=== PATIENT | male | born 2000 | race African-American/Black ===

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

== ENCOUNTER 2021-04-14 21:29 | Emergency (ER) | payer MEDICAID, SELFPAY ==
[2021-04-14 21:30] VITALS: BP 138/68; PULSE 76; RESP 15; TEMP 36.3; O2SAT 98; BMI 21.3
--- NOTE | 2021-04-14 22:00 | RAD_ITS ---
STUDY: X-RAY - LEFT SHOULDER REASON FOR EXAM: Male, 20 years old. PAIN TECHNIQUE: 4 view(s) of the shoulder. COMPARISON: None. FINDINGS: Normal glenohumeral articulation. Normal acromioclavicular joint. Downsloping acromion. Normal humeral head and visualized proximal humerus. The soft tissue structures are unremarkable. Normal visualized pulmonary apex. RAD/Shoulder min 2 Views IMPRESSION: Downsloping acromion which can be a cause of subacromial impingement. Otherwise normal shoulder. Electronically Signed: Carl Marrero MD at 22:22 EDT Tel , Service support ,
--- NOTE | 2021-04-14 22:39 | EDS_ITS ---
HPI History of Present Illness Chief Complaint: Upper Extremity Injury Detail of Chief Complaint: Left shoulder pain Informant: patient Onset/Context/Timing Onset: Month(s) Context: Gradual Onset Timing: Waxes and wanes Quality of Pain: Aching and Throbbing Current Severity: Mild Maximum Severity: Moderate Narrative Narrative: Patient present secondary left shoulder pain. He states is been having trouble for about a year. Usually when he plays basketball it will loo sen up and feel better but today has had increased pain after playing basketball. He states he has had prior x-rays and MRIs with no definitive cause for his pain. He is right-hand dominant. He denies a specific injury to his shoulder. PFSH PFSH no medical history Home Medications cyclobenzaprine 10 mg PO BID PRN #10 tab 04/14/21 [Rx Last Taken Unknown] naproxen [Naprosyn] 500 mg PO BID PRN #20 tab 04/14/21 [Rx Last Taken Unknown] Allergy/AdvReac Type Severity Reaction Status Date / Time No Known Allergies Allergy Verified 04/14/21 21:29 Social History Smoking Status: Never smoker ROS ROS ED Constitutional Constitutional ED: Denies chills or fever(s) Eyes Eyes: Denies change in vision ENT ENT ED: Denies sore throat Cardiovascular Cardiovascular: Denies chest pain Respiratory/Chest Respiratory/Chest: Denies cough or dyspnea Gastrointestinal Gastrointestinal: Denies abdominal pain, diarrhea, nausea or vomiting Genitourinary Genitourinary ED: Denies dysuria Musculoskeletal Musculoskeletal: Reports other Details: Left shoulder pain ; Denies back pain Integumentary Denies rash Neurologic Neurologic: Denies headache(s) or weakness Psychiatric Psychiatric: Denies anxiety or depression Endocrine Endocrinology: Denies polydipsia or polyuria Allergic/Immunologic Allergic/Immunologic ED: Denies urticaria EXAM Physical Exam Const Vital Signs: 04/14/21 21:30 Temperature 97.3 F L Temperature Source Temporal Pulse Rate 76 Respiratory Rate 15 Blood Pressure 138/68 H Blood Pressure Mean 91 Pulse Ox 98 Oxygen Delivery Method Room Air Positive well nourished and well developed General Appearance ED: well developed HEENT Reports normocephalic and head/scalp atraumatic Eyes PERRL and EOMs intact bilaterally Neck supple Chest Wall inspection of chest normal and palpation of chest normal Resp normal respiratory effort and clear to auscultation bilaterally Cardio regular rate and regular rhythm GI normal to inspection, nondistended, normoactive bowel sounds Palpation: soft Extremity normal to inspection Extremity Narrative: Tenderness palpation over the subscapularis muscle as well as over the humeral head. Full range of motion. No overlying skin change. Neuro oriented x3 and no sensory deficits noted Sensorium / Orientation: alert Motor Exam: strength 5/5 throughout Psych mental status grossly normal Skin no rashes or lesions noted MDM MDM MDM Narrative Medical decision making narrative: X-rays are obtained per nursing protocol. Radiography Diagnostic Testing: Radiology Impression Shoulder X-Ray 04/14/21 22:00 IMPRESSION: Downsloping acromion which can be a cause of subacromial impingement. Otherwise normal shoulder. Electronically Signed: Carl Marrero MD at 22:22 EDT Tel , Service support , Treatment and Re-Evaluation Comments:: Per my interpretation no obvious bony abnormalities on the x-ray. Radiologist interpretation is reviewed. He does have downsloping acromion which may cause subacromial impingement. This was reviewed with him. He will be treated with anti-inflammatories as well as a few muscle relaxers. He will be referred to orthopedics for follow-up. Discharge Plan Triage Chief Complaint: Upper Extremity Injury ED Provider: Kavita Tse Dx/Rx/DC Orders Clinical Impression: Sprain of left shoulder Instructions: ED Shoulder Impingement Syndrome Prescriptions: New naproxen [Naprosyn] 500 mg tablet 500 mg PO BID PRN (Reason: pain) Qty: 20 RF: 0 cyclobenzaprine 10 mg tablet 10 mg PO BID PRN (Reason: muscle spasm) Qty: 10 RF: 0 Primary Care Provider: Jackson Moreira Referrals: Jackson Moreira MD [Primary Care Provider] - Luis Alfredo Wilcox DO [STAFF PHYSICIAN] - 1 Week Disposition Disposition: Home, self care
[2021-04-14] MEDS: Pantoprazole Sodium 20 MG Tablet PO (23:02)
[2021-04-14] MEDS: predniSONE 20 MG Tablet 40 MG PO (23:02)
[2021-04-14] MEDS: Naproxen 500 MG Tablet PO (23:02)
== END 2021-04-14 23:04 | disposition home or self-care (01) ==
LOC: ED 22:56
PROVIDERS: Emergency Provider Emergency Medicine; PCP Family Medicine
DX: S43.402A Unspecified sprain of left shoulder joint, initial encounter (principal); Y93.64 Activity, baseball
CPT/HCPCS: 73030; 99283

== ENCOUNTER 2021-05-04 14:41 | Emergency (ER) | payer MEDICAID, SELFPAY ==
[2021-05-04 14:42] VITALS: BP 131/83; PULSE 62; RESP 14; TEMP 36.7; O2SAT 98; BMI 22.2
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
[2021-05-04] MEDS: Diphth,Pertuss(Acell),Tet Vac 0.5 ML Vial IM (15:25)
[2021-05-04] MEDS: Lidocaine 1% (20 ml mdv) 20 ML Vial INFILT (15:27)
[2021-05-04] MEDS: Amox/Clavulanate 875 MG Tablet PO (16:25)
[2021-05-04 16:28] VITALS: RESP 16
== END 2021-05-04 16:29 | disposition home or self-care (01) ==
PROVIDERS: Emergency Provider Emergency Medicine; PCP Family Medicine
DX: S61.214A Laceration without foreign body of right ring finger without damage to nail, initial encounter (principal); S56.425A Laceration of extensor muscle, fascia and tendon of right ring finger at forearm level, initial encounter; Y04.0XXA Assault by unarmed brawl or fight, initial encounter; Y93.89 Activity, other specified; Y92.89 Other specified places as the place of occurrence of the external cause; Y99.8 Other external cause status
CPT/HCPCS: 12001; 73140; 90471; 90715; 99284

== ENCOUNTER 2021-05-09 13:50 | Day surgery (SDC) | payer MEDICAID, SELFPAY ==
[2021-05-09 09:34] VITALS: BMI 22.2
[2021-05-09 14:27] VITALS: BP 119/77; PULSE 50; RESP 16; TEMP 36.6; O2SAT 100; BMI 17.2
[2021-05-09] MEDS: Lactated Ringers 1,000 ML 100 ML IV ×2 (14:50→16:25)
[2021-05-09] MEDS: Mupirocin Ointment 22gm Tube 1 APPLIC (15:55)
[2021-05-09] MEDS: Lidocaine 1% /Epi 1:100 (50ml) 50 ML VIAL (15:55)
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
--- NOTE | 2021-05-09 16:11 | PCM.DC ---
Discharge Instructions Diet Discharge Diet: No restrictions Activity Discharge Activity: May Shower (wear plastic bag over right hand when showering.) and - (no lifting with right hand. keep right hand elevated. ) May shower in (days): 1 (wear plastic bag over right hand when showering.) May resume sexual activity in: 10-14 days Weight Bearing Status: Weight bearing as tolerated Lifting Restrictions: no lifting with right hand. Keep extremity elevated above heart level: Right Arm Dressing / Incision Call your doctor if your incision/area has: Continuous Slow Oozing, Sudden Increased Bleeding, Increased Pain/ Swelling, Increased Redness, Foul Smelling Discharge and Swelling at the incision site Call your doctor if you observe: Fever of 101 or Higher, Coldness, Increased Pain, Shortness of breath, Chest pain, Calf discomfort and Uncontrolled pain Change Dressing in: 1 week (will change operative dressing in office or at OT with replacement silastic splint.) Cleanse incision/area with: - (wear plastic bag over right hand when showering.) Follow Up Care Please Follow Up With: Mike Amaya MD When: one week. call [phone] for appt. will set up appt with OT for silastic splint and at the appropriate time, range of motion exercises, strengthening, and edema management. Test Results: Test results from this visit will be discussed in further detail at your follow-up appointment, if applicable. Discharge Plan Admission Primary Reason for Your Visit: outpatient surgery Attending Provider: Mike Amaya Primary Care Provider: Jackson Moreira Discharge Orders/Prescriptions Prescriptions: New amoxicillin-pot clavulanate [Augmentin] 875-125 mg tablet 1 tab PO BID Qty: 30 RF: 0 oxycodone-acetaminophen [Percocet] 5-325 mg tablet 1 tab PO Q4H PRN (Reason: pain (scale score 7-10)) 7 Days Qty: 40 RF: 0 Referrals / Follow Up: Jackson Moreira MD [Primary Care Provider] - Disposition Disposition (needs filled in before D/C Order can be placed): Home, Self Care
[2021-05-09 16:19] VITALS: BP 119/77; BP 135/85; PULSE 68; RESP 16; TEMP 35.9; O2SAT 98
[2021-05-09 16:30] VITALS: BP 119/77; BP 127/89; PULSE 51; RESP 16; O2SAT 98
[2021-05-09 16:45] VITALS: BP 119/77; BP 142/87; PULSE 47; RESP 16; O2SAT 100
[2021-05-09 16:49] VITALS: BP 119/77; BP 142/94; PULSE 44; RESP 16; TEMP 35.9; O2SAT 100
[2021-05-09] MEDS: Acetaminophen 325 MG Tablet PO (17:04)
[2021-05-09] MEDS: oxyCODONE 5 MG Tablet PO (17:04)
[2021-05-09 17:13] VITALS: BP 119/77; BP 147/90; PULSE 42; RESP 16; O2SAT 100
== END 2021-05-09 17:30 | disposition home or self-care (01) ==
LOC: SDC 13:51 → AC 13:53
PROVIDERS: PCP Family Medicine; Referring Provider Surgery; Visit Provider Surgery
PROC: (CPT 26418; principal; 2021-05-09 14:05)
DX: S66.324A Laceration of extensor muscle, fascia and tendon of right ring finger at wrist and hand level, initial encounter (principal); S61.254A Open bite of right ring finger without damage to nail, initial encounter; Y04.2XXD Assault by strike against or bumped into by another person, subsequent encounter
CPT/HCPCS: 01810; 26418; 87426; J7120; J0295; J2405

== ENCOUNTER 2021-05-23 11:00 | Outpatient (RCR) | payer MEDICAID, SELFPAY ==
[2021-05-15 14:14] VITALS: BMI 17.2
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
--- NOTE | 2021-11-04 09:46 | HP.OT.NRP ---
LUIS OLIVER ALVARES was seen in my office for initial evaluation on 05/16/21. The following Plan of Care was established for this patient: Initial Frequency: 1x/Week Initial Duration: 4 Weeks Plan: cont POC Anticipated Interventions: Early Active Motion, A/AAROM/PROM, Scar Care, Wound Care, Modalities, Orthoses This patient was last seen in our office 05/23/21. Pertinent comments regarding their Occupational therapy will appear below: pt seen for 2 visits- due to time lapse in services pt. D/C At this point I will be discontinuing this patient from occupational therapy. I would be happy to see this patient again in the future if found appropriate by the physician. Thank you! Marleny Lim, OTR/L, CHT
== END 2021-05-23 19:00 | disposition home or self-care (01) ==
LOC: OT 11:00
PROVIDERS: PCP Family Medicine; Referring Provider Surgery; Visit Provider Surgery
DX: S66.324D Laceration of extensor muscle, fascia and tendon of right ring finger at wrist and hand level, subsequent encounter (principal); S61.254D Open bite of right ring finger without damage to nail, subsequent encounter; Y04.0XXD Assault by unarmed brawl or fight, subsequent encounter
CPT/HCPCS: 97140; 97166; 97530

== ENCOUNTER 2021-05-24 12:00 | Emergency (ER) | payer MEDICAID, SELFPAY ==
[2021-05-22 14:44] VITALS: BMI 17.2
[2021-05-24 12:01] VITALS: BP 122/90; PULSE 61; RESP 15; TEMP 36.8; BMI 21.9
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
[2021-05-24] MEDS: Lidocaine 1% (20 ml mdv) 20 ML Vial INFILT (12:53)
[2021-05-24] MEDS: Doxycycline 100 MG CAPSULE PO (12:53)
== END 2021-05-24 12:56 | disposition home or self-care (01) ==
LOC: ED 12:48
PROVIDERS: Emergency Provider Emergency Medicine; PCP Family Medicine
DX: T81.31XA Disruption of external operation (surgical) wound, not elsewhere classified, initial encounter (principal)
CPT/HCPCS: 12020; 99284

== ENCOUNTER 2022-05-05 17:30 | Outpatient (RCR) | payer MEDICAID, SELFPAY ==
--- NOTE | 2022-04-16 13:56 | HP.PTEVAL ---
Patient's Visit Information LUIS ALVARES is a 21 year old M referred to Physical Therapy by Richa Barclay with a diagnosis of Strain of muscle in LB. Date of Evaluation: 04/16/22 Physical Therapist: Yayo Ryder, ANNE, OCS, CSCS - Visit Plan Frequency: 1-2x /Week Duration: 2-4 Weeks Plan: 2x/week as needed for modalities including STM to L LB, US and ES if needed. If doing better than can progress to core strength and progression of function. - Subjective Back spasms in LB and cannot workout. LBP L sided pain, it started two days ago in the middle of a basketball workout after a cutting move. [place] it moreso at home. My posture is poor playing the game. Not a chronic problem. Sleeping OK. Pain 0-6/10 sharp pain. Not playing basketball since then. Not improving. Activities at home are pretty normal. Not employed. - Objective Walks normal into PT without hesitation. Trasnfers I, some hesitation and discomfort to supine with unsupported pelvis but transient.. Posture in sitting is poor and sacral sitting hunched over but not painful. L/S extension min limited and L pain, SB comfortable and full R and some pain end range L SB. flexion is full and without pain. reflexes 2/3 patella and achilles. Sensation LE WNL to gross light touch. HS mod tight at -35 90/90 test, - SLR, - slump test. strength LE 5/5 without myotomal problems. Core abs 4?5 with some minor discomfort and extension 4+ without pain. - Balance/Special Test Scores Oswestry Low Back Score: 8 - Goals Goal 1:: patient painfree with transfers Goal Time Frame: 2-4 Weeks Goal 2:: Pt feel back to 95% normal activity and no pain Goal Time Frame: 2-4 Weeks Goal 3:: Oswestry score perfect Goal Time Frame: 2-4 Weeks Goal 4:: I appropriate management of condition. Goal Time Frame: 2-4 Weeks - Rehabilitation Potential Physical Therapy Diagnosis: lumbar strain Rehabilitation Potential: Good - Anticipated Interventions Patient/Client Instruction: Educate patient on: Condition, Plan of Care For the Purpose of:: To decrease pain, To improve muscle performance and motor function, To increase tolerance to activity/condition/position Therapeutic Exercise to Include: Strength training, Flexibilty training, Dynamic Lumbar Stabilization For the Purpose of:: To decrease pain, To improve muscle performance and motor function, To increase tolerance to activity/condition/position Manual Therapy Techniques to Include: Soft tissue mobilization For the Purpose of:: To increase ROM TENS: Yes Cryotherapy (ice pack, ice massage): Yes For the Purpose of:: To decrease pain, To improve muscle performance and motor function, To increase tolerance to activity/condition/position, To improve ability of physical actions for home/community/work/leisure, To improve gait and locomotor functions Thank you for the opportunity to evaluate your patient. For Medicare and Medicare HMO plans, please review the plan of care and approve it. It will need to be FAXED BACK to us at [phone] for Medicare purposes. For Medicare only, by signing this I certify the plan of care. Please let me know if there are questions or concerns regarding this plan of care. Physician Signature: Date:
--- NOTE | 2022-07-14 13:13 | HP.PT.NRP ---
LUIS OLIVER ALVARES was seen in my office for initial evaluation on 04/16/22. The following Plan of Care was established for this patient: Initial Frequency: 1-2x /Week Initial Duration: 2-4 Weeks Patient/Client Instruction: Educate patient on: Condition, Plan of Care For the Purpose of:: To decrease pain, To improve muscle performance and motor function, To increase tolerance to activity/condition/position Therapeutic Exercise to Include: Strength training, Flexibilty training, Dynamic Lumbar Stabilization For the Purpose of:: To decrease pain, To improve muscle performance and motor function, To increase tolerance to activity/condition/position Manual Therapy Techniques to Include: Soft tissue mobilization For the Purpose of:: To increase ROM TENS: Yes Cryotherapy (ice pack, ice massage): Yes For the Purpose of:: To decrease pain, To improve muscle performance and motor function, To increase tolerance to activity/condition/position, To improve ability of physical actions for home/community/work/leisure, To improve gait and locomotor functions This patient was last seen in our office 05/05/22. Pertinent comments regarding their Physical therapy will appear below: Pt seen 4 visits of POC and was improving slowly. He no showed for his last 2 visits and neglected to reschedule. At this point, it has been over two months and I will discontinue him from my care. At this point I will be discontinuing this patient from physical therapy. I would be happy to see this patient again in the future if found appropriate by the physician. Thank you! Yayo Ryder, DPT, OCS, CSCS Balance/Gait/Functional tests - Balance/Special Test Scores Oswestry Low Back Score: 8
== END 2022-05-05 19:00 | disposition home or self-care (01) ==
LOC: PT 17:30
PROVIDERS: PCP Family Medicine
DX: S39.012D Strain of muscle, fascia and tendon of lower back, subsequent encounter (principal)
CPT/HCPCS: 97014; 97035; 97110; 97140; 97161; G0283